=== PATIENT | female | born 1990 | race Native Hawaiian/Other Pacific Islander ===

== ENCOUNTER → 2022-08-13 10:03 | Outpatient (BNVA) | payer OTHER, SELFPAY | PROVIDERS: PCP Physician Assistant Medical; Visit Provider Nurse Practitioner Family | DX: G43.909 Migraine, unspecified, not intractable, without status migrainosus (principal); G93.2 Benign intracranial hypertension; G47.33 Obstructive sleep apnea (adult) (pediatric); E66.01 Morbid (severe) obesity due to excess calories; Z99.89 Dependence on other enabling machines and devices; Z68.41 Body mass index [BMI] 40.0-44.9, adult | CPT/HCPCS: 99212 ==

== ENCOUNTER 2022-11-13 10:41 | Outpatient (AMB) | payer OTHER, SELFPAY ==
--- NOTE | 2022-11-13 10:53 | MHC.OFFVIS ---
Intake Vital Signs 11/13/22 10:54 Height 5 ft 5 in Weight 231 lb 4 oz BMI 38.5 BP 108/80 Blood Pressure Location Lt brachial Position Sitting Pulse 81 Pulse Source Pulse Oximeter Pulse Oximetry (%) 96 Oxygen Delivery Method Room Air Intake Visit Reasons: 3m follow up - Confirmed Intake Note: Pt presents as a 3m f/u. My headaches got way better. I get a minor headache in the morning but nothing crazy. 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 Pt endorses the following interval medical history changes: Pt has underwent gastric sleeve surgery about 1 month ago- through [facility] weight loss program. She deneis any post-op cmplications and is feeling well. Her weight has already decreased by 30 lbs. She has not had any severe headaches, maybe just a mild headache in the morning which resolves with eating/drinking something. She has reduced the acetazolamide to 250mg qd- no worsening headaches or vision changes. She needs to schedule her f/u eye appt She ic ompliant w/ PAP tx. [facility] Surgical History (Updated 11/13/22 @ 11:02 by Randi Eddy CMA) History of section S/P gastric sleeve procedure Family History Mother Diabetes Father Diabetes Social History Alcohol intake: never Patient Tobacco Use Status: Never used Tobacco Substance Use Type: Marijuana Review of Systems Const All systems reviewed & are unremarkable except as noted in HPI and below Physical Exam Vital Signs: Last Vital Signs Pulse 81 11/13/22 10:54 BP 108/80 11/13/22 10:54 Pulse Ox 96 11/13/22 10:54 Oxygen Delivery Method Room Air 11/13/22 10:54 BMI result Body Mass Index 38.5 Const General: cooperative and no acute distress Orientation/consciousness: patient oriented x3 HEENT Head: Yes normocephalic Resp Effort & Inspection: normal respiratory effort and able to speak in complete sentences Neuro General: patient oriented x3, gait normal and CN's II-XI intact bilaterally Cognition (Neuro): normal cognition Motor exam (neuro): 5/5 motor strength present throughout Psych Appearance: grossly normal Mental Status: mental status grossly normal Speech and movement: Normal speech and movement present Affect: normal affect Attitude: cooperative Thought process: Normal thought process present Thought content: Normal thought content present Insight: Good insight present (Psych) Judgement: Good judgement present (Psych) Assessment & Plan Assessment & Plan (1) IIH (idiopathic intracranial hypertension): Code(s): G93.2 - Benign intracranial hypertension (2) Migraine: Code(s): G43.909 - Migraine, unspecified, not intractable, without status migrainosus (3) JOE on CPAP: Code(s): G47.33 - Obstructive sleep apnea (adult) (pediatric); Z99.89 - Dependence on other enabling machines and devices Plan Continue Acetazolamide 250mg qd, may take 1 extra 1 tab per day prn worsening headache. Discussed that acetazolamide treats intracranial CSF hypertension to prevent complications such as visual loss and not solely headache. Eye exam when able. Continue PAP tx. f/u in 3-4 months or sooner prn Medications: Changed From acetazolamide may take 1 extra tab per day prn increased headache 250 mg PO TID 30 days 120 tabs 3RF To acetazolamide may take 1 extra tab per day prn increased headache 250 mg PO DAILY Coding Level of Care Code Est Pt Level 4 (19895) Diagnoses IIH (idiopathic intracranial hypertension) G93.2 Migraine G43.909 JOE on CPAP G47.33; Z99.89
[2022-11-13 10:54] VITALS: BP 108/80; PULSE 81; O2SAT 96; BMI 38.5
== END 2022-11-13 11:29 | disposition home or self-care (01) ==
LOC: HO.HSMS 10:41
PROVIDERS: PCP Physician Assistant Medical; Visit Provider Nurse Practitioner Family
DX: G93.2 Benign intracranial hypertension (principal); G43.909 Migraine, unspecified, not intractable, without status migrainosus; G47.33 Obstructive sleep apnea (adult) (pediatric); Z99.89 Dependence on other enabling machines and devices
CPT/HCPCS: 99214

== ENCOUNTER → 2022-11-13 10:41 | Outpatient (BNVA) | payer OTHER, SELFPAY | PROVIDERS: PCP Physician Assistant Medical; Visit Provider Nurse Practitioner Family | DX: G43.909 Migraine, unspecified, not intractable, without status migrainosus (principal); G93.2 Benign intracranial hypertension; G47.33 Obstructive sleep apnea (adult) (pediatric); Z79.899 Other long term (current) drug therapy; Z99.89 Dependence on other enabling machines and devices | CPT/HCPCS: 99212 ==

== ENCOUNTER 2024-05-12 09:40 | Outpatient (AMB) | payer OTHER, SELFPAY ==
[2024-05-12 09:55] VITALS: BP 142/78; BMI 33.6
--- NOTE | 2024-05-12 09:55 | A.OFFVIS_ITS ---
Vital Signs 05/12/24 09:55 Height 5 ft 5 in Weight 202 lb BMI 33.6 BP 142/78 H Blood Pressure Location Rt brachial Position Sitting Intake Visit Reasons: Follow up Intake Note: Patient here for follow up. patient still having headaches Allergies pollen Allergy (Unknown, Uncoded 05/12/24 09:57) Unknown Medication List - Last Reconciled 05/12/24 by Marcus Ledezma PA-C acetazolamide 250 mg PO DAILY budesonide-formoterol 80-4.5 mcg/actuation (Symbicort) inhalation [calcium PO DAILY] docusate sodium 100 mg PO BID escitalopram oxalate mg PO fluoxetine 20 mg PO DAILY furosemide (Lasix) 20 mg PO Q OTHER DAY MDD 20mg PO daily kjkhsnvauebb-uhe-bezh-FA-vit K 45 mg iron- 800 mcg-120 mcg (Bariatric Multivitamins) caps PO DAILY HPI Comments Details: 33 year old female presents for daily headaches. PMH Gastric Bypass in 2020, she lost over 70 pounds. Idiopathic Intracranial Hypertension (Pseudotumor Cerebri) She complaints of daily headaches d/t gaining weight again the pressure increases in her head. She has headaches which last all day, start in the fronto-temporal area and migrate to the temples, with a throbbing to sharp sensation with aura, n/v dizziness, and vertigo with positional changes, improves when she lies down. Denies loss of balance or falls, tinnitus. She avoids caffeine, salt and drinks lots of water. 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 Her BP is elevated today 148/72, and that is the first sign, which prompts her to take action JULIO. Denies curtain coming down or loss of vision in either eye. She had acute angle glaucoma when she was . She denies blurry vision, has not seen the eye doctor in years. She says she has a fast HR and her legs are swelling up. She normally takes Azetazolamide, however stopped taking it due to the taste disturbances on a continuum. She has anxiety due to the sudden onset of changes with her body, takes Fluoxetine and says her mood is stable, she has a good support network. Azetazolamide makes her have a metallic taste in her mouth, and she is not able to tolerate it anymore, there is nothing else which helps with the pressures. Referral for Interventional Radiology and Letter for luciana NEGRON. [facility] Surgical History S/P gastric sleeve procedure History of section Family History Mother Diabetes Father Diabetes Social History Alcohol intake: never Patient Tobacco Use Status: Never used Tobacco Substance Use Type: Marijuana Review of Systems ENT Reports Normal hearing present Neuro Reports Normal hearing present Physical Exam Vital Signs: Last Vital Signs BP 142/78 H 05/12/24 09:55 BMI result Body Mass Index 33.6 Const General: cooperative, comfortable and no acute distress Nutritional Appearance: obese (BMI 33) Orientation/consciousness: patient oriented x3 HEENT Face and sinus: Yes normal facial exam and Yes face symmetric Throat: No posterior oropharynx abnormal and Yes other ([place] score of 3) Eyes Pupils: Equal, round and reactive pupils present Neck Neck: Yes full ROM and Yes supple Resp Effort & Inspection: normal respiratory effort and able to speak in complete sentences Neuro General: patient oriented x3 and moves all extremities Cranial nerves: Yes CN's II-XII intact bilaterally, Yes Facial sensation intact/muscles of mastication intact, Yes Equal, round and reactive pupils present, Yes Normal accommodation reflex present, Yes Bilaterally intact EOM present, Yes Nystagmus not present, Yes Normal facial strength present, Yes Midline tongue present, Yes Normal hearing present, Yes Ability to bilaterally rotate head present and Yes Ability to bilaterally elevate shoulders present Cognition (Neuro): normal cognition Gait exam (Neuro): Normal gait present Motor exam (neuro): 5/5 motor strength present throughout, Pronator motor function not present, no tremor noted and Normal motor muscle tone present throughout Deep tendon reflexes (DTR's): Right triceps reflex intensity grade: 2+, Left triceps reflex intensity grade: 2+, Rt Biceps (C5, C6): 2+, Left biceps reflex intensity grade: 2+, Right brachioradialis reflex intensity grade: 2+, Left brachioradialis reflex intensity grade: 2+, Right patellar reflex intensity grade: 2+, Left patellar reflex intensity grade: 2+, Right ankle reflex intensity grade: 2+ and Left ankle reflex intensity grade: 2+ Coordination: [id number] test normal Psych Appearance: grossly normal Mental Status: mental status grossly normal Speech and movement: Normal speech and movement present Affect: normal affect Attitude: cooperative Thought process: Normal thought process present Insight: Good insight present (Psych) Judgement: Good judgement present (Psych) Results Reviewed Results Reviewed: Consult notes from Spinal LP procedure Sleep Study Feb 2022 Mild JOE AHI 5 start CPAP Assessment & Plan Assessment & Plan (1) IIH (idiopathic intracranial hypertension): Code(s): G93.2 - Benign intracranial hypertension Category: Medical (2) Migraine: Code(s): G43.909 - Migraine, unspecified, not intractable, without status migrainosus Category: Medical Qualifiers: Intractability: not intractable Migraine type: other Status migrainosus presence: without status migrainosus Qualified Code(s): G43.809 - Other migraine, not intractable, without status migrainosus Plan ICH / Pseudotumor Cerebri: Referral for Interventional Radiology, LP procedure in clinic. RMV- Letter for windshield tinting. Opthamology f/u for optic nerve involvement. Patient Education: Discussed use of Furosemide (lasix) diuretic daily to decrease in Intracranial Pressure, to prevent papilladema, Acute angle Glaucoma and or vision loss. Discussed dietary changes reduction of salt, caffiene using diuretics, and natural supplements to decrease pressure in the brain. Orders: Orders FL guided lumbar puncture LP Today G43.909 - Migraine, unspecified, not intractable, without status migrainosus, G93.2 - Benign intracranial hypertension Medications: New furosemide (Lasix) Take one pill 20mg PO every other day for ICH. 20 mg PO Q OTHER DAY 30 tabs 1RF ICH MDD 20mg PO daily G43.909 - Migraine, unspecified, not intractable, without status migrainosus, G93.2 - Benign intracranial hypertension Coding Level of Care Code Est Pt Level 4 (68286) Diagnoses IIH (idiopathic intracranial hypertension) G93.2 Other migraine without status migrainosus, not intractable G43.809 Intractability: not intractable Migraine type: other Status migrainosus presence: without status migrainosus Time Spent (min) 40 Comment Worsening DOWD
== END 2024-05-12 10:31 | disposition home or self-care (01) ==
PROVIDERS: Absent Provider Physician Assistant Medical; Visit Provider Physician Assistant Medical
DX: G93.2 Benign intracranial hypertension (principal); G43.809 Other migraine, not intractable, without status migrainosus
CPT/HCPCS: 99214

== ENCOUNTER → 2024-05-12 09:40 | Outpatient (BNVA) | payer OTHER, SELFPAY | PROVIDERS: Absent Provider Physician Assistant Medical; Visit Provider Nurse Practitioner Family | DX: G43.809 Other migraine, not intractable, without status migrainosus (principal); G93.2 Benign intracranial hypertension | CPT/HCPCS: 99212 ==

== ENCOUNTER 2024-07-01 09:33 | Day surgery (SDC) | payer OTHER, SELFPAY ==
--- NOTE | ~2024-07-01 | FL_ITS ---
FLUOROSCOPIC LUMBAR PUNCTURE Indication: Benign intracranial hypertension Risks and benefits and possible complications were discussed with the patient and the consent form was signed. Patient was placed prone on the fluoroscopy table. The back was prepped and draped in routine sterile fashion. Betadine was used as a skin antiseptic. Utilizing fluoroscopic guidance, the L4-5 level was accessed with a 22 gague Otilio spinal needle and clear CSF fluid obtained. Opening pressure was 25 cm H2O in the left lateral decubitus position. 12 cc of fluid was removed and sent for analysis. Closing pressure was 10 cm H2O. The needle was removed without immediate complications. Total fluoroscopy time: 0.2 min FL/FL guided lumbar puncture LP Impression: Successful fluoroscopic lumbar puncture at L4-L5. Opening pressure was 25 cm H2O. Closing pressure was 10 cm H2O after removal of 12 cc of CSF. This procedure was performed by Mariusz Garcia PA-C and supervised by Dr. Guadalupe. Electronically signed by: Ilan Guadalupe MD 07/01/2024 05:07 PM IVAN
[2024-07-01 09:53] VITALS: BMI 33.6
[2024-07-01 09:57] LABS: UPreg QC Valid YES
[2024-07-01 09:58] LABS: Urine Pregnancy NEGATIVE (NEGATIVE)
[2024-07-01 10:18] VITALS: BP 129/78; PULSE 65; RESP 16; TEMP 36.7; O2SAT 99
[2024-07-01 11:40] VITALS: BP 123/80; PULSE 64; RESP 18; TEMP 36.8; O2SAT 100
[2024-07-01 11:55] VITALS: BP 134/61; PULSE 65; RESP 18; O2SAT 100
[2024-07-01 12:10] VITALS: BP 144/85; PULSE 68; RESP 18; O2SAT 100
[2024-07-01 12:25] VITALS: BP 136/82; PULSE 68; RESP 18; O2SAT 100
[2024-07-01 12:40] VITALS: BP 140/86; PULSE 65; RESP 18; TEMP 36.6; O2SAT 100
[2024-07-01 12:42] LABS: CSF Appearance Clear, Colorless; CSF Tube # 2
[2024-07-01 12:51] LABS: Glucose CSF 48 mg/dL; Total Protein CSF 26.7 mg/dL (15-45)
[2024-07-01 13:26] LABS: Appearance CSF CLEAR; CSF Tube # 4; CSF Volume 2.5 ML; Color CSF COLORLESS; White Blood Cell CSF 1 MM*3
[2024-07-01 13:27] LABS: Appearance CSF CLEAR; CSF Monos 25 %; CSF Tube # 1; Color CSF COLORLESS; Lymphocytes CSF 100 %; Lymphocytes CSF 75 %; Red Blood Cell CSF 0 MM*3; White Blood Cell CSF 1 MM*3
== END 2024-07-01 12:59 | disposition home or self-care (01) ==
PROVIDERS: Nurse Practitioner Family; Physician Assistant Surgical; PCP Internal Medicine; Visit Provider Physician Assistant Medical
PROC: 009U3ZZ Drainage of Spinal Canal, Percutaneous Approach (ICD-10-PCS; CPT 62270; principal; 2024-07-01 11:00)
DX: G93.2 Benign intracranial hypertension (principal); G43.809 Other migraine, not intractable, without status migrainosus; J30.1 Allergic rhinitis due to pollen; Z79.899 Other long term (current) drug therapy; Z98.84 Bariatric surgery status
CPT/HCPCS: 62328; 81025; 82945; 84157; 87015; 87070; 87205; 89051; J2003

== ENCOUNTER → 2024-07-01 10:17 | Outpatient (BNV) | payer OTHER, SELFPAY | PROVIDERS: PCP Internal Medicine; Visit Provider Physician Assistant Surgical | DX: G93.2 Benign intracranial hypertension (principal) | CPT/HCPCS: 62328 ==

== ENCOUNTER 2024-08-03 07:34 | Outpatient (AMB) | payer OTHER, SELFPAY ==
--- NOTE | 2024-08-03 07:34 | A.OFFVIS_ITS ---
Intake Visit Reasons: f/u per [facility] Intake Note: patient following up Allergies pollen Allergy (Unknown, Uncoded 08/03/24 07:34) Unknown Medication List - Last Reconciled 08/03/24 by BERTHA Mejía acetazolamide 250 mg PO DAILY budesonide-formoterol 80-4.5 mcg/actuation (Symbicort) 80 inhalations inhalation DAILY [calcium PO DAILY] docusate sodium 100 mg PO BID escitalopram oxalate 5 mg PO DAILY fluoxetine 20 mg PO DAILY furosemide (Lasix) 20 mg PO Q OTHER DAY MDD 20mg PO daily wplxjkqljjba-neg-bmrg-FA-vit K 45 mg iron- 800 mcg-120 mcg (Bariatric Multivitamins) 1 cap PO DAILY topiramate 25 - 50 mg (1 - 2 x 25 mg) PO BID 30 days HPI Comments Details: History of Present Illness The patient is a 33-year-old female presenting with follow-up for idiopathic intracranial hypertension and associated high-pressure headaches. Lumbar puncture results show opening pressure at the borderline increase at [id number] with normal CSF studies, while past pressure was notably higher at 42 cm H2O. Daily headaches are present, worse on lying down, with associated nausea, light sensitivity, or sound sensitivity. Pulsatile tinnitus occurs nocturnally when reclined, and states probably has it all the time but it is worse when laying down. She has noticed generalized vision changes. Topiramate has been started, and has helped reduce headcahe some, she feels topiramate is helping to reduce her intracranial pressure as it has causes polyuria. However, topiramate is causing some taste changes and paresthesias. Previous acetazolamide trial caused significant taste disturbances. No longer taking any caffeine. Overall eating a more well-rounded healthy diet s/p gastric sleeve. Physical Exam Headache location: occipital Headache Frequency: every day Headache Duration: comes and goes Headache severity: moderate-severe Headache prodrome symptoms: denies Headache Aura: sometimes sees colorful lights during a headcahe Associated headache symptoms: pulsatile tinnitus, light sensitivity, sound sensitivity, nausea Headache postdrome symptoms: unsure Headache alleviating factors: topiramate Headache aggravating factors: worse when laying down Results - Lumbar puncture showing borderline elevated opening pressure of 25 cm H2O with normal CSF studies. [facility] Surgical History (Updated 08/03/24 @ 07:37 by ANASTASIA Guidry) S/P panniculectomy S/P gastric sleeve procedure History of section Family History Mother Diabetes Father Diabetes Social History Alcohol intake: never Patient Tobacco Use Status: Never used Tobacco Substance Use Type: Marijuana Physical Exam Const General: cooperative and no acute distress Orientation/consciousness: patient oriented x3 Resp Effort & Inspection: normal respiratory effort and able to speak in complete sentences Neuro General: patient oriented x3 Cognition (Neuro): normal cognition Psych Appearance: grossly normal Mental Status: mental status grossly normal Speech and movement: Normal speech and movement present Affect: normal affect Attitude: cooperative Telehealth Telehealth Telehealth Platform: Telephone Location of provider rendering services: practice address Location of patient: address on file Patient Identification confirmed using: Name, : Yes Telehealth method: video Patient verbally consented to treatment: Yes Patient verbally consented to billing insurance company: Yes Patient informed of any privacy concerns related to visit: Yes Minutes spent on Phone/Video with Pt.: 22 Assessment & Plan Assessment & Plan (1) IIH (idiopathic intracranial hypertension): Comment: June 2023 LP in left lateral decubitus position- showed LP 25 cm H2O with normal basic CSF studies. Code(s): G93.2 - Benign intracranial hypertension Category: Medical (2) Migraine: Code(s): G43.909 - Migraine, unspecified, not intractable, without status migrainosus Category: Medical Qualifiers: Intractability: not intractable Migraine type: other Status migrainosus presence: without status migrainosus Qualified Code(s): G43.809 - Other migraine, not intractable, without status migrainosus (3) Obesity (BMI 30.0-34.9): Code(s): E66.811 - Obesity, class 1 Category: Medical Plan Discussion Notes I discussed with the patient the current management of idiopathic intracranial hypertension, focusing on addressing her persistent high-pressure headaches. The patient reported ongoing headache issues, which worsen upon lying down and are accompanied by pulsatile tinnitus. We deliberated on increasing her current topiramate dosage or transitioning to a long-acting variant to possibly reduce side effects and enhance efficacy. I highlighted the different types of long- acting topiramates and advised on monitoring responses after the switch is made. We considered an acute migraine medication to manage breakthrough headaches despite concerns about potential side effects. I reassured the patient about managing her intracranial pressure while discussing the non-necessity of outright avoiding caffeine, given no clear trigger with low dose caffeine use. I encouraged her to contact the eye doctor for further assessment of intracranial hypertension impacts. I have advised her to have a follow-up brain MRI and brain MRV- to assess for secondary etiologies and to determine if patient is a candidate for alternate treatment interventions. I advised her to report any changes or adverse effects, especially given prior adverse reactions to medications. Patient was informed and verbally consented to the use of an ambient scribe for clinic note documentation during this visit. Plan Patient is advised to undergo: Ophthalmology exam- order already written, patient will call office today to make appointment. Brain MRI and brain MRV with and without contrast to assess for secondary etiologies of elevated intracranial pressure, in to determine if patient would be a candidate for alternate treatment interventions. For acute migraine phenotype headache: Trial Sumatriptan 100mg tab, 1/2 - 1 tab (50-100mg) at onset of headache, may repeat in 2 hours. Max of 2 tabs (200mg) per 24 hours. May take sumatriptan with OTC Tylenol 650-1,000mg every 4-6 hours, Ibuprofen (liquid gels) 600mg every 6 hours, or Naproxen (liquid gels) 440mg q 12 hrs prn. Potential adverse effects of triptans, include but are not limited to nausea, fatigue, chest tightness/tingling (usually passes within a few minutes), medication overuse headaches. For IH with migraine phenotype headache: We have previously discontinued furosemide order- the patient never started. Hold topiramate 50 mg q.a.m. order. Trial Trokendi/Topiramate XR 100 mg daily at bedtime-in hopes this is better tolerated and more effective. Patient Instructions - Begin trial of long-acting topiramate; monitor for side effects. - Take acute migraine medication at first headache sign; avoid frequent use. - May take moderate caffeine intake. - Undergo brain MRI with and without contrast and brain MRV with and without contrast - Schedule and attend an eye doctor appointment. - Contact me with any medication issues or worsening symptoms. - Follow up with the planned imaging and test appointments. Follow-up upon review of above and in clinic in 1-2 months. Medications: New 2 topiramate XR (Trokendi XR) 100 mg PO DAILY 30 caps 3RF 30 days sumatriptan succinate 50 - 100 mg orally at onset of headache, may repeat in 2 hrs PRN; max 2 tabs per day or 4 tabs/week (may take with Tylenol) 12 tabs 6RF migraine headache 30 days Discontinued 2 topiramate Discontinued Reason: Doctor's Order 25 - 50 mg (1 - 2 x 25 mg) PO BID 30 days 120 tabs 3RF Coding Level of Care Code Tele Est Pt Level 4 (31246) Diagnoses IIH (idiopathic intracranial hypertension) G93.2 Other migraine without status migrainosus, not intractable G43.809 Intractability: not intractable Migraine type: other Status migrainosus presence: without status migrainosus Obesity (BMI 30.0-34.9) E66.811
== END 2024-08-03 10:52 | disposition home or self-care (01) ==
LOC: HO.HSMS 07:34
PROVIDERS: Visit Provider Nurse Practitioner Family
DX: G93.2 Benign intracranial hypertension (principal); G43.809 Other migraine, not intractable, without status migrainosus; E66.811 Obesity, class 1
CPT/HCPCS: 99214

== ENCOUNTER → 2024-08-03 07:34 | Outpatient (BNVA) | payer OTHER, SELFPAY | PROVIDERS: Visit Provider Nurse Practitioner Family ==

== ENCOUNTER → 2024-08-13 14:54 | Outpatient (BNV) | payer OTHER, SELFPAY | PROVIDERS: Visit Provider Radiology Diagnostic Radiology | DX: R51.9 Headache, unspecified (principal) | CPT/HCPCS: 70546; 70553 ==

== ENCOUNTER 2024-08-13 14:55 | Outpatient (REF) | payer OTHER, SELFPAY ==
--- NOTE | ~2024-08-13 | MR_ITS ---
EXAMINATION: MR BRAIN WITHOUT THEN WITH IV CONTRAST, MR BRAIN VENOGRAPHY WITHOUT THEN WITH IV CONTRAST HISTORY: R51.9 - Headache, unspecified TECHNIQUE: Sagittal T1, and axial T1, FLAIR, T2, gradient echo, and diffusion weighted MR images of the brain were obtained. Subsequently, axial, and coronal T1-weighted images were obtained after the administration of intravenous gadolinium. 10 mL Gadavist was administered. MR venography of the dural venous sinuses was performed with 2-D [id number] imaging and after the administration of intravenous gadolinium. COMPARISON: None FINDINGS: Richards/white differentiation is normal. There are scattered foci of magnetic susceptibility artifact in the anterior aspect of the right temporal lobe, the medial aspect of the left temporal lobe, the left parietal lobe, and the right frontal lobe, consistent with hemosiderin. There is no mass effect or midline shift. There is no evidence of acute intracranial hemorrhage. There are no foci of restricted diffusion. There is no abnormal contrast enhancement. There is mild optic nerve sheath distention on T2-weighted images. The optic nerves measure up to 6 mm in diameter. There is no significant posterior globe flattening or optic nerve head protrusion. There is no abnormal optic nerve enhancement. The pituitary gland is somewhat flattened in appearance. MR venogram of the dural venous sinuses demonstrates patency of the superior sagittal, straight, transverse, and sigmoid sinuses. However, the transverse sinuses appear somewhat diminutive in size. Normal vascular flow voids are noted in the basilar and carotid arteries. The visualized paranasal sinuses are clear. MR/MR head/brain wo/w con IMPRESSION: 1. Mild optic nerve sheath distention, flattening of the pituitary gland, and diminutive transverse dural venous sinuses. The constellation of findings is suggestive of pseudotumor cerebri. Clinical correlation is recommended. 2. Scattered foci of hemosiderin as described, which can be seen in the setting of intracranial hypertension or amyloid. 3. There is no evidence of dural venous sinus thrombosis or acute infarct. Electronically signed by: Romain Lee MD 08/15/2024 09:04 AM EDT
--- NOTE | ~2024-08-13 | MR_ITS ---
EXAMINATION: MR BRAIN WITHOUT THEN WITH IV CONTRAST, MR BRAIN VENOGRAPHY WITHOUT THEN WITH IV CONTRAST HISTORY: R51.9 - Headache, unspecified TECHNIQUE: Sagittal T1, and axial T1, FLAIR, T2, gradient echo, and diffusion weighted MR images of the brain were obtained. Subsequently, axial, and coronal T1-weighted images were obtained after the administration of intravenous gadolinium. 10 mL Gadavist was administered. MR venography of the dural venous sinuses was performed with 2-D [id number] imaging and after the administration of intravenous gadolinium. COMPARISON: None FINDINGS: Richards/white differentiation is normal. There are scattered foci of magnetic susceptibility artifact in the anterior aspect of the right temporal lobe, the medial aspect of the left temporal lobe, the left parietal lobe, and the right frontal lobe, consistent with hemosiderin. There is no mass effect or midline shift. There is no evidence of acute intracranial hemorrhage. There are no foci of restricted diffusion. There is no abnormal contrast enhancement. There is mild optic nerve sheath distention on T2-weighted images. The optic nerves measure up to 6 mm in diameter. There is no significant posterior globe flattening or optic nerve head protrusion. There is no abnormal optic nerve enhancement. The pituitary gland is somewhat flattened in appearance. MR venogram of the dural venous sinuses demonstrates patency of the superior sagittal, straight, transverse, and sigmoid sinuses. However, the transverse sinuses appear somewhat diminutive in size. Normal vascular flow voids are noted in the basilar and carotid arteries. The visualized paranasal sinuses are clear. MR/MR venography head wo/w con IMPRESSION: 1. Mild optic nerve sheath distention, flattening of the pituitary gland, and diminutive transverse dural venous sinuses. The constellation of findings is suggestive of pseudotumor cerebri. Clinical correlation is recommended. 2. Scattered foci of hemosiderin as described, which can be seen in the setting of intracranial hypertension or amyloid. 3. There is no evidence of dural venous sinus thrombosis or acute infarct. Electronically signed by: Romain Lee MD 08/15/2024 09:04 AM EDT
[2024-08-13] MEDS: gadobutroL 10 ML VIAL IVPUSH (15:34)
== END 2024-08-13 14:56 | disposition home or self-care (01) ==
LOC: HO.MRI 14:55
PROVIDERS: Visit Provider Nurse Practitioner Family
DX: R51.9 Headache, unspecified (principal); G93.2 Benign intracranial hypertension; H53.9 Unspecified visual disturbance; E66.811 Obesity, class 1
CPT/HCPCS: 70546; 70553; A9585

== ENCOUNTER 2024-09-07 07:44 | Outpatient (AMB) | payer OTHER, SELFPAY ==
--- NOTE | 2024-09-07 07:45 | MHC.OFFVIS ---
Vital Signs 09/07/24 07:46 Height 5 ft 5 in Weight 200 lb BMI 33.3 Intake Visit Reasons: 2 mnts per K.H Intake Note: Patient presents 2 month follow up for IIH (idiopathic intracranial hypertension) Allergies pollen extracts Allergy (Unknown, Verified 09/07/24 07:47) Unknown Medication List - Last Reconciled 09/07/24 by BERTHA Mejía budesonide-formoterol 80-4.5 mcg/actuation (Symbicort) 80 inhalations inhalation DAILY [calcium PO DAILY] docusate sodium 100 mg PO BID escitalopram oxalate 5 mg PO DAILY fluoxetine 20 mg PO DAILY furosemide (Lasix) 20 mg PO Q OTHER DAY MDD 20mg PO daily byhdrrcanysq-rpv-blgp-FA-vit K 45 mg iron- 800 mcg-120 mcg (Bariatric Multivitamins) 1 cap PO DAILY Qudexy XR (topiramate) 100 mg PO BEDTIME 30 days NS sumatriptan succinate 50 - 100 mg orally at onset of headache, may repeat in 2 hrs PRN; max 2 tabs per day or 4 tabs/week (may take with Tylenol) 30 days HPI Comments Details: 34-year-old female presents for tele video follow-up of idiopathic intracranial hypertension and migraine. Interval brain MRI w/wo and head MRV w/wo results were notable for mild optic nerve sheath distention, flattening of the pituitary gland, scattered foci of hemosiderin staining, and a diminutive transverse dural venous sinuses without evidence of sinus thrombosis or acute infarct. 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 Patient has had follow-up visual field testing, and is scheduled for another round of testing. Patient denies any significant visual changes. She states that she has resumed the topiramate IR 50 mg in the morning, it is altering her taste but she is tolerating it a bit better. Notes it is decreasing her appetite some. She continues to wake up every day with a headache, and it subsides some after taking the topiramate. She notes that she is not sure why, but her weight has been increasing, now up to 200 lb. She is trying to eat well, and is working with a framing inspector at her weight loss clinic. She notes she can be prone to eating when stress- the tries to up for healthier fruits and vegetables. She has a history of gastric sleeve surgery. Patient reports that a recent request for Zepbound therapy was denied by her insurance. Patient has a history of obstructive sleep apnea, however patient has had a significant weight loss since last sleep study- last greater than 60 lb. Patient notes with the recent weight gain however she has had increased snoring, daytime sleepiness, and difficulty sleeping. 08/03/2024, HPI: The patient is a 33-year-old female presenting with follow-up for idiopathic intracranial hypertension and associated high-pressure headaches. Lumbar puncture results show opening pressure at the borderline increase at [id number] with normal CSF studies, while past pressure was notably higher at 42 cm H2O. Daily headaches are present, worse on lying down, with associated nausea, light sensitivity, or sound sensitivity. Pulsatile tinnitus occurs nocturnally when reclined, and states probably has it all the time but it is worse when laying down. She has noticed generalized vision changes. Topiramate has been started, and has helped reduce headcahe some, she feels topiramate is helping to reduce her intracranial pressure as it has causes polyuria. However, topiramate is causing some taste changes and paresthesias. Previous acetazolamide trial caused significant taste disturbances. No longer taking any caffeine. Overall eating a more well-rounded healthy diet s/p gastric sleeve. Headache location: occipital Headache Frequency: every day Headache Duration: comes and goes Headache severity: moderate-severe Headache prodrome symptoms: denies Headache Aura: sometimes sees colorful lights during a headache Associated headache symptoms: pulsatile tinnitus, light sensitivity, sound sensitivity, nausea Headache postdrome symptoms: unsure Headache alleviating factors: topiramate Headache aggravating factors: worse when laying down [facility] Surgical History S/P panniculectomy S/P gastric sleeve procedure History of section Family History Mother Diabetes Father Diabetes Social History Alcohol intake: never Patient Tobacco Use Status: Never used Tobacco Substance Use Type: Marijuana Physical Exam Vital Signs: BMI result Body Mass Index 33.3 Const General: cooperative and no acute distress Orientation/consciousness: patient oriented x3 Resp Effort & Inspection: normal respiratory effort and able to speak in complete sentences Neuro General: patient oriented x3 Cognition (Neuro): normal cognition Psych Appearance: grossly normal Mental Status: mental status grossly normal Speech and movement: Normal speech and movement present Affect: normal affect Attitude: cooperative Telehealth Telehealth Telehealth Platform: [employer] Location of provider rendering services: practice address Location of patient: address on file Patient Identification confirmed using: Name, : Yes Telehealth method: video Patient verbally consented to treatment: Yes Patient verbally consented to billing insurance company: Yes Patient informed of any privacy concerns related to visit: Yes Minutes spent on Phone/Video with Pt.: 30 Results Reviewed Results Reviewed: 08/13/2024, MR/MR head/brain wo/w con and MR/MR venography head wo/w con IMPRESSION: 1. Mild optic nerve sheath distention, flattening of the pituitary gland, and diminutive transverse dural venous sinuses. The constellation of findings is suggestive of pseudotumor cerebri. Clinical correlation is recommended. 2. Scattered foci of hemosiderin as described, which can be seen in the setting of intracranial hypertension or amyloid. 3. There is no evidence of dural venous sinus thrombosis or acute infarct. Previous results: 07/01/2024- Lumbar puncture showing borderline elevated opening pressure of 25 cm H2O with normal CSF studies. Assessment & Plan Assessment & Plan (1) IIH (idiopathic intracranial hypertension): Comment: June 2023 LP in left lateral decubitus position- showed LP 25 cm H2O with normal basic CSF studies. Code(s): G93.2 - Benign intracranial hypertension Category: Medical (2) Migraine: Code(s): G43.909 - Migraine, unspecified, not intractable, without status migrainosus Category: Medical Qualifiers: Intractability: not intractable Migraine type: chronic migraine (15 or more days per month) without aura Status migrainosus presence: without status migrainosus Qualified Code(s): G43.709 - Chronic migraine without aura, not intractable, without status migrainosus (3) Obesity (BMI 30.0-34.9): Code(s): E66.811 - Obesity, class 1 Category: Medical (4) Snoring: Code(s): R06.83 - Snoring Category: Medical (5) JOE (obstructive sleep apnea): Code(s): G47.33 - Obstructive sleep apnea (adult) (pediatric) Category: Medical (6) Weight gain: Code(s): R63.5 - Abnormal weight gain Category: Medical (7) Excessive daytime sleepiness: Comment: ESS 10 Code(s): G47.19 - Other hypersomnia Category: Medical Plan Discussed that recent testing is consistent with a diagnosis of idiopathic intracranial hypertension. Reviewed when IIH is left untreated, here is risk for irreversible vision loss. Reviewed that treatment of the intracranial hypertension and the associated migraine phenotypic headache may require alternate treatment modalities. For acute migraine phenotype headache: Continue Sumatriptan 100mg tab, 1/2 - 1 tab (50-100mg) at onset of headache, may repeat in 2 hours. Max of 2 tabs (200mg) per 24 hours. May take sumatriptan with OTC Tylenol 650-1,000mg every 4-6 hours, Ibuprofen (liquid gels) 600mg every 6 hours, or Naproxen (liquid gels) 440mg q 12 hrs prn. Potential adverse effects of triptans, include but are not limited to nausea, fatigue, chest tightness/tingling (usually passes within a few minutes), medication overuse headaches. For idiopathic intracranial hypertension: We will order an in-lab PSG sleep study to assess status of sleep apnea Follow-up with ophthalmology visual field testing as ordered. We will follow-up on status of neuro endovascular consult appointment at [facility]. Start Qudexy/topiramate XR 100 mg daily at bedtime- in hopes this is better tolerated. Once Qudexy is available, discontinue topiramate 50 mg daily in a.m.- as patient does not tolerate higher dose. Request for Trokendi/Topiramate XR 100 mg order was denied by insurance- they require trial of Qudexy first. Previous trials: Acetazolamide- patient did not tolerate. Future considerations: GLP 1 antagonist such as Zepbound therapy. For chronic migraine prevention: Start Atogepant (Qulipta) 60mg daily at bedtime- as this may also help to promote weight loss. Potential side effects include but are not limited to drowsiness, nausea, constipation, weight loss. Continue topiramate as above. Migraine prevention treatment contraindications: Beta-blockers due to asthma diagnosis. As patient has concomitant IIH, would avoid any scheduled medication that could promote weight gain, such as amitriptyline, TCAs, beta-blockers, Depakote, gabapentin. Follow-up upon review of above and in clinic in 3 months. Orders: Orders RT PSG in-lab sleep study Today G47.33 - Obstructive sleep apnea (adult) (pediatric), R06.83 - Snoring, R63.5 - Abnormal weight gain Medications: New atogepant 60 mg PO DAILY 30 tabs 6RF 30 days G43.809 - Other migraine, not intractable, without status migrainosus Changed From topiramate XR (Qudexy XR) 100 mg PO BEDTIME 30 days 30 ea 6RF To Qudexy XR (topiramate) 100 mg PO BEDTIME 30 ea 6RF 30 days NS Discontinued furosemide (Lasix) Take one pill 20mg PO every other day for ICH. Discontinued Reason: Doctor's Order 20 mg PO Q OTHER DAY 30 tabs 1RF ICH MDD 20mg PO daily G43.909 - Migraine, unspecified, not intractable, without status migrainosus, G93.2 - Benign intracranial hypertension Coding Level of Care Code Tele Est Pt Level 4 (26454) Diagnoses IIH (idiopathic intracranial hypertension) G93.2 Chronic migraine without aura without status migrainosus, not intractable G43.709 Intractability: not intractable Migraine type: chronic migraine (15 or more days per month) without aura Status migrainosus presence: without status migrainosus Obesity (BMI 30.0-34.9) E66.811 Snoring R06.83 JOE (obstructive sleep apnea) G47.33 Weight gain R63.5 Excessive daytime sleepiness G47.19
[2024-09-07 07:46] VITALS: BMI 33.3
== END 2024-09-07 16:20 | disposition home or self-care (01) ==
LOC: HO.HSMS 07:45
PROVIDERS: Visit Provider Nurse Practitioner Family
DX: G43.709 Chronic migraine without aura, not intractable, without status migrainosus (principal); G93.2 Benign intracranial hypertension; E66.811 Obesity, class 1; Z68.33 Body mass index [BMI] 33.0-33.9, adult; G47.33 Obstructive sleep apnea (adult) (pediatric); R06.83 Snoring; R63.5 Abnormal weight gain; G47.19 Other hypersomnia
CPT/HCPCS: 99214

== ENCOUNTER → 2024-10-06 20:30 | Outpatient (REF) | payer OTHER, SELFPAY | LOC: HO.SL 20:30 | PROVIDERS: Visit Provider Nurse Practitioner Family | DX: G47.33 Obstructive sleep apnea (adult) (pediatric) (principal); R63.5 Abnormal weight gain; R06.83 Snoring | CPT/HCPCS: 95810 ==

== ENCOUNTER → 2024-10-06 21:38 | Outpatient (BNV) | payer OTHER, SELFPAY | PROVIDERS: Visit Provider Psychiatry & Neurology Neurology | DX: R06.83 Snoring (principal) | CPT/HCPCS: 95810 ==

== ENCOUNTER 2024-11-16 11:31 | Outpatient (AMB) | payer OTHER, SELFPAY ==
--- NOTE | 2024-11-16 11:44 | MHC.OFFVIS ---
Vital Signs 11/16/24 11:45 Height 5 ft 5 in Weight 207 lb 4 oz BMI 34.5 BP 132/80 Blood Pressure Location Lt brachial Position Sitting Pulse 82 Pulse Source Pulse Oximeter Pulse Oximetry (%) 99 Oxygen Delivery Method Room Air Intake Visit Reasons: 6mon follow-up Intake Note: Patient presents follow up migraine/JOE medication. PSG in chart(AHI-1, NORY-88%). Patient states she had Ajovy injection(only did one injection and was unaware of refill. While one Ajovy she did not have any migraines that month. informed to call pharmacy to call and refill Auth still good till 12/2024. She is taking topiramate and helps. Also, needing tint waiver as she now has a new car. Accompanied by: Self / Same As Patient Allergies pollen extracts Allergy (Unknown, Verified 11/16/24 11:49) Unknown HPI Comments Details: 34-year-old female presents for follow-up of idiopathic intracranial hypertension and chronic migraines 11/03/2024 PSG no evidence of JOE AHI 1 and Nory O2 88%. PMH 08/2024 MRVenogram - Upon review of the MRI results, which support idiopathic intracranial hypertension diagnosis, discussed with the patient, and patient has been referred to [facility] End[facility] 08/2024, will call for urgent f/u. 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 No evidence of Papilledema, she does have bilateral otpic atrophy. 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 She has headaches d/t htn and has Lumbar Punctures when pressures increase. CSF labs reviewed today. She denies vision changes, blurriness, scotomas and pain with movement of eyes. She started Ajovy in September 2024, with good effect as she didn't have any migraines in the month of September. She thinks she is gaining weight with Ajovy she is 215lbs now she was 207lbs. During last week of September 2024, she started getting migraines 2x/week, even with Topiramate XR Qudexy 100mg po as this decreased the severity of the headaches. She has resumed the topiramate IR 50 mg in the morning, it alters her taste, though she is tolerating it better, and it is not as bad as Diamox which caused her to wake up daily with headaches. She says sugar free drinks help, now she drinks water, and is managed by the weight clinic q3mos. She continues to eat a clean diet, limits carbs and sugars. Zepbound was denied by insurance. She has a h/o gastric sleeve surgery, lost 60lbs and last PSG shows no evidence of JOE, she continues to have chronic fatigue. 08/03/2024, HPI: The patient is a 33-year-old female presenting with follow-up for idiopathic intracranial hypertension and associated high-pressure headaches. Lumbar puncture results show opening pressure at the borderline increase at [id number] with normal CSF studies, while past pressure was notably higher at 42 cm H2O. Daily headaches are present, worse on lying down, with associated nausea, light sensitivity, or sound sensitivity for acute migraines she is taking Sumatriptan PRN 50-100mg. Pulsatile tinnitus occurs nocturnally when reclined, and states probably has it all the time but it is worse when laying down. She notices vision changes. Topiramate has helped reduce headaches a bit, however still has 3-4/wk which can last all day. She feels topiramate is effective in reduction of ICP as it causes polyuria. However, topiramate is causing some taste changes and paresthesias. Previous acetazolamide trial caused significant taste disturbances. Denies caffeine use, and eating a well-rounded healthy diet s/p gastric sleeve. Migraine Characteristics: Daily occipital headaches, waxes and wanes, moderate to severe with pulsatile tinnitus, photophobia and phonophobia. Prodromes:Auras: colorful lights during the headaches. Worse when lying down, and improves with topiramate. [facility] Surgical History S/P panniculectomy S/P gastric sleeve procedure History of section Family History Mother Diabetes Father Diabetes Social History Alcohol intake: never Patient Tobacco Use Status: Never used Tobacco Substance Use Type: Marijuana Review of Systems ENT Reports Normal hearing present Neuro Reports Normal hearing present Physical Exam Vital Signs: Last Vital Signs Pulse 82 11/16/24 11:45 BP 132/80 11/16/24 11:45 Pulse Ox 99 11/16/24 11:45 Oxygen Delivery Method Room Air 11/16/24 11:45 BMI result Body Mass Index 34.5 Const General: cooperative, comfortable and no acute distress Nutritional Appearance: overweight Orientation/consciousness: patient oriented x3 HEENT Face and sinus: Yes face symmetric Throat: Yes other (Mallampti score 2/3) Eyes Pupils: Equal, round and reactive pupils present Neck Neck: Yes full ROM Resp Effort & Inspection: normal respiratory effort and able to speak in complete sentences Neuro Other: pain on lateral rotaion r>l and with extension flexion General: patient oriented x3 and moves all extremities Cranial nerves: Yes Equal, round and reactive pupils present, Yes Normal accommodation reflex present, Yes Normal facial strength present, Yes Midline tongue present, Yes Normal hearing present, Yes Ability to bilaterally rotate head present and Yes Ability to bilaterally elevate shoulders present Cognition (Neuro): normal cognition Gait exam (Neuro): Normal gait present Motor exam (neuro): 5/5 motor strength present throughout and Normal motor muscle tone present throughout Psych Appearance: grossly normal Attitude: cooperative Thought process: Normal thought process present Thought content: Normal thought content present Results Reviewed Results Reviewed: 08/2024 MR venogram 1. Mild optic nerve sheath distention, flattening of the pituitary gland, and diminutive transverse dural venous sinuses. The constellation of findings is suggestive of pseudotumor cerebri. Clinical correlation is recommended. 2. Scattered foci of hemosiderin as described, which can be seen in the setting of intracranial hypertension or amyloid. 3. There is no evidence of dural venous sinus thrombosis or acute infarct. Assessment & Plan Assessment & Plan (1) IIH (idiopathic intracranial hypertension): Comment: June 2023 LP in left lateral decubitus position- showed LP 25 cm H2O with normal basic CSF studies. F/U with [facility] End[facility]. Continue Topiramate use until ajovy is approved. Code(s): G93.2 - Benign intracranial hypertension Category: Medical (2) Snoring: Comment: PSG no evidence of JOE/ will refer to sleep dentistry for JOE. Code(s): R06.83 - Snoring Category: Medical (3) Migraine: Comment: Qudexey XR 100mg PO BID and f/u with Neuro- Endovascular re: ICP, with Sumatriptan for acute preventative. Will f/u for Ajovy prior auth. Code(s): G43.909 - Migraine, unspecified, not intractable, without status migrainosus Category: Medical Qualifiers: Intractability: not intractable Migraine type: chronic migraine (15 or more days per month) without aura Status migrainosus presence: without status migrainosus Qualified Code(s): G43.709 - Chronic migraine without aura, not intractable, without status migrainosus (4) Obesity (BMI 30.0-34.9): Comment: f/u with weight management Code(s): E66.811 - Obesity, class 1 Category: Medical (5) Weight gain: Code(s): R63.5 - Abnormal weight gain Category: Medical (6) Excessive daytime sleepiness: Comment: ESS 10 will monitor day time sleepiness. Code(s): G47.19 - Other hypersomnia Category: Medical (7) Bruxism (teeth grinding): Comment: sleep dentistry referral mouth guard Code(s): F45.8 - Other somatoform disorders Category: Medical Plan JOE PSG no evidence of JOE, will refer to Sleep Dentistry for evaluation for snoring and oral appliance use. IIH with risk for irreversible vision loss, if untreated. Referral to [facility]End[facility] phone number given today. Acute migraine phenotype headache: Continue Sumatriptan 100mg tab, 1/2 - 1 tab (50-100mg) at onset of headache, may repeat in 2 hours. Max of 2 tabs (200mg) per 24 hours. May take sumatriptan with OTC Tylenol 650-1,000mg every 4-6 hours, Ibuprofen (liquid gels) 600mg every 6 hours, or Naproxen (liquid gels) 440mg q 12 hrs prn. Potential adverse effects of triptans, include but are not limited to nausea, fatigue, chest tightness/tingling (usually passes within a few minutes), medication overuse headaches. For idiopathic intracranial hypertension: 09/2024 [facility] ophthalmology visual field testing. See note. Call and f/u with [facility] neuro-endovascular consult pending, phone number given to patient today and msg. Regina Barrera RN f/u. Contijnue Qudexy/topiramate XR 100 mg daily at bedtime. Once Qudexy is available, discontinue topiramate 50 mg daily in a.m.- as patient does not tolerate higher dose. Request for Trokendi/Topiramate XR 100 mg order was denied by insurance- they require trial of Qudexy first. Previous trials: Acetazolamide- patient did not tolerate. Future considerations: GLP 1 antagonist such as Zepbound therapy. For chronic migraine prevention: Continue Ajovy 225mg 1.5ml subcut chantelle 30 days as patient has good clinical effects and decrease of >30% of migraine burden. Atogepant (Qulipta) 60mg daily order discontinued due insurance denial. Continue topiramate as above. CI to Migraine prevention treatment: Beta-blockers due to asthma diagnosis. As patient has concomitant IIH, would avoid any scheduled medication that could promote weight gain, such as amitriptyline, TCAs, beta-blockers, Depakote, gabapentin. Follow-up upon review of above and in clinic in 3 months. Medications: Refilled sumatriptan succinate (0.5 - 1 x 100 mg) 50 - 100 mg orally at onset of headache, may repeat in 2 hrs PRN; max 2 tabs per day or 4 tabs/week (may take with Tylenol) 30 days 12 tabs 6RF migraine headache Qudexy XR (topiramate) 100 mg PO BEDTIME 30 ea 6RF 30 days NS Patient Instructions: Sleep Hygiene provided: set a scheduled bedtime and wake time to help regulate the circadian rhythm and balance the release of pituitary hormones. Sleep in a dark room, temperatures below 68 degrees, and no devices n bed. Limit caffeinated products 6 hours prior to bed, and limit fluids 2-4 hours prior to bed. Gentle night yoga, diffusing essential oils, and playing soft music can be relaxing. Weight gain f/u weight management Chronic Headaches Qudexy at bedtime, Topiramate at AM. S/E taste alterations and parasthesias. Pending Betina, approval as patient experienced better managemnet of headaches with Ajovy. IIH f/u with [facility] Neuro/ Endovascular. Acute headaches use Sumatriptan prn Coding Level of Care Code Est Pt Level 4 (01013) Complex EM visit Add On G2211 Diagnoses IIH (idiopathic intracranial hypertension) G93.2 Snoring R06.83 Chronic migraine without aura without status migrainosus, not intractable G43.709 Intractability: not intractable Migraine type: chronic migraine (15 or more days per month) without aura Status migrainosus presence: without status migrainosus Obesity (BMI 30.0-34.9) E66.811 Weight gain R63.5 Excessive daytime sleepiness G47.19 Bruxism (teeth grinding) F45.8 Time Spent (min) 35 Comment Consult pending, Betina [facility]EDITH pending.
[2024-11-16 11:45] VITALS: BP 132/80; PULSE 82; O2SAT 99; BMI 34.5
== END 2024-11-16 12:44 | disposition home or self-care (01) ==
LOC: HO.HSMS 11:31
PROVIDERS: Visit Provider Physician Assistant Medical
DX: G93.2 Benign intracranial hypertension (principal); R06.83 Snoring; G43.709 Chronic migraine without aura, not intractable, without status migrainosus; R63.5 Abnormal weight gain; E66.811 Obesity, class 1; G47.19 Other hypersomnia; F45.8 Other somatoform disorders
CPT/HCPCS: 99214; G2211

== ENCOUNTER → 2024-11-16 11:31 | Outpatient (BNVA) | payer OTHER, SELFPAY | PROVIDERS: Visit Provider Physician Assistant Medical | DX: G43.709 Chronic migraine without aura, not intractable, without status migrainosus (principal); G93.2 Benign intracranial hypertension; R06.83 Snoring; R63.5 Abnormal weight gain; E66.811 Obesity, class 1; G47.19 Other hypersomnia; F45.8 Other somatoform disorders; Z68.34 Body mass index [BMI] 34.0-34.9, adult; Z79.899 Other long term (current) drug therapy | CPT/HCPCS: 99212 ==

== ENCOUNTER 2025-03-02 09:53 | Outpatient (AMB) | payer OTHER, SELFPAY ==
[2025-03-02 09:56] VITALS: BP 138/88; PULSE 89; O2SAT 97; BMI 36.3
--- NOTE | 2025-03-02 09:56 | MHC.OFFVIS ---
Vital Signs 03/02/25 09:56 Height 5 ft 5 in Weight 218 lb 2 oz BMI 36.3 BP 138/88 Blood Pressure Location Lt brachial Position Sitting Pulse 89 Pulse Source Pulse Oximeter Pulse Oximetry (%) 97 Oxygen Delivery Method Room Air Intake Visit Reasons: 3 mo follow up Intake Note: Patient presents follow up Migraine. Patient states proceeding doing expanding veins in brain. Had blood transfusion beginning of the month. She increased her Topiramate 50mg from 2 tabs to 3tabs. States all over the place do to everything going on. Allergies pollen extracts Allergy (Unknown, Verified 03/02/25 09:59) Unknown HPI Comments Details: 34-year-old female presents for follow-up of idiopathic intracranial hypertension and chronic migraines 11/03/2024 PSG no evidence of JOE AHI 1 and Abel O2 88%. PMH 08/2024 MR Venogram - Upon review of the MRI results support a diagnosis of idiopathic intra-cranial hypertension, discussed with the patient, and patient has been referred to [facility] 08/2024. 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 She has a h/o gastric sleeve surgery, lost 60lbs and last PSG shows no evidence of JOE, she continues to have chronic fatigue. Zepbound was denied by her insurance. Apr 06 2025 pending neuro-endovascular surgical consult for stent placement, Dr. Delroy Meier. 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 She continues to be anemic and last blood transfusion was in Feb 08, 2025. She has headaches d/t htn and has Lumbar Punctures prn, she continues sumatriptan prn acute migraines. She denies vision changes, blurriness, scotomas and pain with lateral gaze. She started Ajovy in September 2024, with good effect as she didn't have any migraines for 3weeks in September, during last week of September 2024 she started having migraines 2x/week even with Topiramate XR Qudexy 100mg po daily. This helped to decrease the severity of the headaches. She is concerned of weight gain with Ajovy. She has resumed the topiramate IR 50 BID though it alters her taste buds, she is tolerating it better. She says the headache frequency is less with Diabmox, and she is no longer waking up with daily headaches. She says sugar free drinks help, now she drinks water, and is managed by the weight clinic q3mos. She continues to eat a clean diet, limits carbs and sugars. 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 Migraine Characteristics: Daily occipital headaches, waxes and wanes, moderate to severe with pulsatile tinnitus, photophobia and phonophobia. Prodromes:Auras: colorful lights during the headaches. Worse when lying down, and improves with topiramate. Acute migraine phenotype headache: stent placement, pending consult. [facility] Surgical History S/P panniculectomy S/P gastric sleeve procedure History of section Family History Mother Diabetes Father Diabetes Social History Alcohol intake: never Patient Tobacco Use Status: Never used Tobacco Substance Use Type: Marijuana Review of Systems ENT Reports Normal hearing present Neuro Reports Normal hearing present Physical Exam Vital Signs: Last Vital Signs Pulse 89 03/02/25 09:56 BP 138/88 03/02/25 09:56 Pulse Ox 97 03/02/25 09:56 Oxygen Delivery Method Room Air 03/02/25 09:56 BMI result Body Mass Index 36.3 Const General: cooperative, comfortable and no acute distress Nutritional Appearance: overweight Orientation/consciousness: patient oriented x3 HEENT Face and sinus: Yes face symmetric Throat: Yes other (Mallampti score 2/3) Eyes Pupils: Equal, round and reactive pupils present Neck Neck: Yes full ROM Resp Effort & Inspection: normal respiratory effort and able to speak in complete sentences Neuro Other: pain on lateral rotaion r>l and with extension flexion General: patient oriented x3 and moves all extremities Cranial nerves: Yes Equal, round and reactive pupils present, Yes Normal accommodation reflex present, Yes Normal facial strength present, Yes Midline tongue present, Yes Normal hearing present, Yes Ability to bilaterally rotate head present and Yes Ability to bilaterally elevate shoulders present Cognition (Neuro): normal cognition Gait exam (Neuro): Normal gait present Motor exam (neuro): 5/5 motor strength present throughout and Normal motor muscle tone present throughout Psych Appearance: grossly normal Affect: normal affect Attitude: cooperative Thought process: Normal thought process present Thought content: Normal thought content present Insight: Good insight present (Psych) Results Reviewed Results Reviewed: FINDINGS: Richards/white differentiation is normal. There are scattered foci of magnetic susceptibility artifact in the anterior aspect of the right temporal lobe, the medial aspect of the left temporal lobe, the left parietal lobe, and the right frontal lobe, consistent with hemosiderin. There is no mass effect or midline shift. There is no evidence of acute intracranial hemorrhage. There are no foci of restricted diffusion. There is no abnormal contrast enhancement. There is mild optic nerve sheath distention on T2-weighted images. The optic nerves measure up to 6 mm in diameter. There is no significant posterior globe flattening or optic nerve head protrusion. There is no abnormal optic nerve enhancement. The pituitary gland is somewhat flattened in appearance. MR venogram of the dural venous sinuses demonstrates patency of the superior sagittal, straight, transverse, and sigmoid sinuses. However, the transverse sinuses appear somewhat diminutive in size. Normal vascular flow voids are noted in the basilar and carotid arteries. The visualized paranasal sinuses are clear. MR/MR venography head wo/w con IMPRESSION: 1. Mild optic nerve sheath distention, flattening of the pituitary gland, and diminutive transverse dural venous sinuses. The constellation of findings is suggestive of pseudotumor cerebri. Clinical correlation is recommended. 2. Scattered foci of hemosiderin as described, which can be seen in the setting of intracranial hypertension or amyloid. 3. There is no evidence of dural venous sinus thrombosis or acute infarct. FL/FL guided lumbar puncture LP Impression: Successful fluoroscopic lumbar puncture at L4-L5. Opening pressure was 25 cm H2O. Closing pressure was 10 cm H2O after removal of 12 cc of CSF. This procedure was performed by Mariusz Garcia PA-C and supervised by Dr. Guadalupe. Assessment & Plan Assessment & Plan (1) IIH (idiopathic intracranial hypertension): Comment: June 2023 LP in left lateral decubitus position- showed LP 25 cm H2O with normal basic CSF studies. F/U with [facility] Neuro End[facility]. Continue Topiramate use until ajovy is approved. Code(s): G93.2 - Benign intracranial hypertension Category: Medical (2) Snoring: Comment: PSG no evidence of JOE/ will refer to sleep dentistry for JOE. Code(s): R06.83 - Snoring Category: Medical (3) Migraine: Comment: Qudexey XR 100mg PO BID and f/u with Neuro- Endovascular Apr 06 re: ICP, with Sumatriptan for acute preventative . Ajovy concerns of weight gain. Code(s): G43.909 - Migraine, unspecified, not intractable, without status migrainosus Category: Medical Qualifiers: Intractability: not intractable Migraine type: chronic migraine (15 or more days per month) without aura Status migrainosus presence: without status migrainosus Qualified Code(s): G43.709 - Chronic migraine without aura, not intractable, without status migrainosus (4) Obesity (BMI 30.0-34.9): Comment: f/u with weight management Code(s): E66.811 - Obesity, class 1 Category: Medical (5) Weight gain: Code(s): R63.5 - Abnormal weight gain Category: Medical (6) Excessive daytime sleepiness: Comment: ESS 10 will monitor day time sleepiness. Code(s): G47.19 - Other hypersomnia Category: Medical (7) Bruxism (teeth grinding): Comment: sleep dentistry referral mouth guard Code(s): F45.8 - Other somatoform disorders Category: Medical (8) Loud snoring: Code(s): R06.83 - Snoring Category: Medical Plan JOE PSG no evidence of JOE and reviewed w/ pt today. Sleep Dentistry referral for evaluation of oral appliance use and bruxism. IIH with risk for irreversible vision loss, if untreated. Referral to [facility] Neuro-Endovascular pending 2024. Acute migraine phenotype headache: Continue Sumatriptan 100mg tab, 1/2 - 1 tab (50-100mg) at onset of headache, may repeat in 2 hours. Max of 2 tabs (200mg) per 24 hours. May take sumatriptan with OTC Tylenol 650-1,000mg every 4-6 hours, Ibuprofen (liquid gels) 600mg every 6 hours, or Naproxen (liquid gels) 440mg q 12 hrs prn. Potential adverse effects of triptans, include but are not limited to nausea, fatigue, chest tightness/tingling (usually passes within a few minutes), medication overuse headaches. For idiopathic intracranial hypertension: 09/2024 [facility] ophthalmology visual field testing. See note. F/u [facility] neuro-endovascular consult pending. Contijnue Qudexy/topiramate XR 100 mg daily at bedtime not tolerated due to taste. Once Qudexy is available, discontinue topiramate 50 mg daily in a.m.- as patient does not tolerate higher dose. Request for Trokendi/Topiramate XR 100 mg order was denied by insurance- they require trial of Qudexy first. Previous trials: Acetazolamide- patient did not tolerate s/e headaches frequency increased. Future considerations: GLP 1 antagonist such as Zepbound therapy. For chronic migraine prevention: Continue Ajovy 225mg 1.5ml subcut chantelle 30 days as patient has good clinical effects and decrease of >30% of migraine burden. Pt is concerned of weight gain and increased burden of migraines due to htn. Atogepant (Qulipta) 60mg daily order discontinued due insurance denial. Continue topiramate IR 50 mg po BID CI to Migraine prevention treatment: Beta-blockers due to asthma diagnosis. As patient has concomitant IIH, would avoid any scheduled medication that could promote weight gain, such as amitriptyline, TCAs, beta-blockers, Depakote, gabapentin. Follow-up in 3 months. Orders: Referrals Dentistry Referral F45.8 - Other somatoform disorders, R06.83 - Snoring Patient Instructions: Sleep Hygiene provided: set a scheduled bedtime and wake time to help regulate the circadian rhythm and balance the release of pituitary hormones. Sleep in a dark room, temperatures below 68 degrees, and no devices n bed. Limit caffeinated products 6 hours prior to bed, and limit fluids 2-4 hours prior to bed. Gentle night yoga, diffusing essential oils, and playing soft music can be relaxing. Coding Level of Care Code Est Pt Level 4 (95906) Diagnoses IIH (idiopathic intracranial hypertension) G93.2 Snoring R06.83 Chronic migraine without aura without status migrainosus, not intractable G43.709 Intractability: not intractable Migraine type: chronic migraine (15 or more days per month) without aura Status migrainosus presence: without status migrainosus Obesity (BMI 30.0-34.9) E66.811 Weight gain R63.5 Excessive daytime sleepiness G47.19 Bruxism (teeth grinding) F45.8 Loud snoring R06.83
== END 2025-03-02 10:54 | disposition home or self-care (01) ==
LOC: HO.HSMS 09:54
PROVIDERS: Visit Provider Physician Assistant Medical
DX: G93.2 Benign intracranial hypertension (principal); R06.83 Snoring; G43.709 Chronic migraine without aura, not intractable, without status migrainosus; E66.811 Obesity, class 1; R63.5 Abnormal weight gain; G47.19 Other hypersomnia; F45.8 Other somatoform disorders
CPT/HCPCS: 99214

== ENCOUNTER → 2025-03-02 09:53 | Outpatient (BNVA) | payer OTHER, SELFPAY | PROVIDERS: Visit Provider Physician Assistant Medical | DX: G43.709 Chronic migraine without aura, not intractable, without status migrainosus (principal); G93.2 Benign intracranial hypertension; R06.83 Snoring; G47.19 Other hypersomnia; F45.8 Other somatoform disorders; E66.811 Obesity, class 1 | CPT/HCPCS: 99212 ==